=== PATIENT | female | born 1990 | race Caucasian/White ===

== ENCOUNTER 2020-06-10 08:43 | Emergency (ER) | payer BC, SELFPAY ==
--- NOTE | 2020-06-10 08:48 | ED.URI ---
HPI - URI/Sore Throat General Chief Complaint: Ear Stated Complaint: sore throat Time Seen by Provider: 06/10/20 09:00 Source: patient and RN notes reviewed Mode of arrival: ambulatory Limitations: no limitations History of Present Illness HPI Narrative: 29 year old female presents with c/f sore throat, rhinorrhea, nasal congestion, intermittent diarrhea, and fatigue. She reports low grade fever. She reports she has taken ibuprofen for symptom relief. MD elicited complaint: rhinorrhea Related Data Home Medications Medication Instructions Recorded Confirmed buspirone 7.5 mg PO BID 08/05/19 06/10/20 valacyclovir [Valtrex] 500 mg PO DAILY 08/05/19 06/10/20 Allergies Allergy/AdvReac Type Severity Reaction Status Date / Time No Known Allergies Allergy Mild Verified 06/10/20 08:57 Review of Systems Review of Systems: Narrative: CONSTITUTIONAL: Denies malaise, chills, sweats. reports fatigue and low grade fever. EYES: Denies visual changes, redness, or discharge. ENT: Reports rhinorrhea, congestion, otalgia and sore throat. Denies sinus pain, CARDIOVASCULAR: Denies chest pain, palpitations, or edema. RESPIRATORY: Reports occasional cough and chest congestion. Denies dyspnea. GASTROINTESTINAL: Denies abdominal pain, nausea, vomiting, diarrhea SKIN: Denies rash or itching. MUSCULOSKELETAL: Denies myalgia. NEUROLOGIC: Denies headache. All systems reviewed & are unremarkable except as noted in HPI and below PMFSH Family History Family History Father Hypertension Grandparent Family history of malignant neoplasm of breast, Onset Age: 65 Family history of coronary artery disease Diabetes mellitus Hypertension Cerebrovascular accident, Onset Age: 72 Mother Hypertension Social History Social History Smoking status: Former smoker Alcohol intake: current Substance use: never Gender identity (if verbalized by the patient): Female Spiritual care concerns: No Comments At time of signature, agree with nursing past medical, surgical, social and family history. There is no relevant family history pertinent to the presenting complaint Exam Narrative: Exam Narrative: GENERAL: Well-appearing, well-nourished, and in no acute distress. HEAD: Normocephalic EYES: PERRLA, conjunctivae clear ENT: Nares clear, turbinates edematous and erythematous, clear discharge. Mucous membranes moist. TM pearly ortega with dull light reflex bilaterally; no tragal tenderness. Oropharynx erythematous without lesions. Tonsils enlarged and without exudate, no drooling, no hoarseness, no trismus, uvula midline. NECK: Supple. No lymphadenopathy CHEST: Clear to auscultation, breath sounds equal. No wheezing, rhonchi, rales, or stridor. No respiratory distress, speaks in full sentences. HEART: Regular rate and rhythm. No murmur heard. SKIN: Warm, dry, no rash. NEURO: Alert and oriented x3. PSYCH: Normal mood and affect Course Course Emergency Course: Patient is aware of diagnosis, understands and agrees to treatment plan. Anticipatory guidance given. Patient agrees to follow-up as directed and is aware of reasons to seek care at the emergency department. Portions of this record may have been created with voice recognition software Vital Signs Vital signs: Vital Signs Temperature 97.7 F 06/10/20 08:53 Pulse Rate 85 06/10/20 08:53 Respiratory Rate 16 06/10/20 08:53 Blood Pressure 120/79 06/10/20 08:53 Pulse Oximetry 100 06/10/20 08:53 Temperature 97.7 F 06/10/20 08:53 Pulse Rate 85 06/10/20 08:53 Respiratory Rate 16 06/10/20 08:53 Blood Pressure 120/79 06/10/20 08:53 Pulse Oximetry 100 06/10/20 08:53 Reviewed. MDM - URI/Sore Throat MDM Narrative Medical decision making narrative: Differential diagnosis considered: Dominguez virus, strep pharyngitis, allergic rhinitis, upper respiratory tract infection, sinusitis, rhinosinusitis, annetta
[2020-06-10 08:53] VITALS: BP 120/79; PULSE 85; RESP 16; TEMP 36.5; O2SAT 100
== END 2020-06-10 09:15 | disposition home or self-care (01) ==
PROVIDERS: Emergency Provider Nurse Practitioner; PCP Family Medicine
DX: J06.9 Acute upper respiratory infection, unspecified (principal); Z20.828 Contact with and (suspected) exposure to other viral communicable diseases; Z87.891 Personal history of nicotine dependence
CPT/HCPCS: 99213; G0463

== ENCOUNTER 2020-06-11 06:45 | Outpatient (NON) | payer BC, SELFPAY ==
[2020-06-11 19:00] LABS: SARS-CoV-2 RNA PCR Negative
== END 2020-06-11 06:46 ==
PROVIDERS: PCP Family Medicine; Visit Provider Nurse Practitioner
DX: Z20.828 Contact with and (suspected) exposure to other viral communicable diseases (principal); J06.9 Acute upper respiratory infection, unspecified
CPT/HCPCS: 87635; C9803; U0003

== ENCOUNTER 2021-07-01 13:46 | Emergency (ER) | payer BC, SELFPAY ==
--- NOTE | ~2021-07-01 | XR_ITS ---
EXAMINATION: XR chest 2V EXAM DATE: 07/01/2021 14:10 INDICATION: Sometimes prod cough x 1 month. Pt shielded. TECHNIQUE: Frontal and lateral projections of the chest obtained and reviewed. Comparison is made to prior examination from 04/19/2019. FINDINGS: The lungs are clear. There are no pleural effusions. The cardiomediastinal silhouette is within normal limits. There is no pneumothorax suspected. The bones and soft tissues are unremarkab le. There is no significant interval change. IMPRESSION: No acute cardiopulmonary findings. Reviewed, dictated and finalized at location A.
[2021-07-01 13:50] VITALS: BP 128/89; PULSE 95; RESP 18; TEMP 36.2
--- NOTE | 2021-07-01 14:37 | ED.URI ---
HPI - URI/Sore Throat General Chief Complaint: Upper Respiratory Infection Stated Complaint: cough/wheezing Time Seen by Provider: 07/01/21 14:12 Source: patient and RN notes reviewed Limitations: no limitations History of Present Illness HPI Narrative: The vaccinated patient, previously healthy who is a vapor/smoker with pets at home, presents with cough. Patient states she has a 3-day worsening of at least 30-day history of intermittent cough. She had a telemedicine visit with her doctor and was treated symptomatically and slightly improved afterwards. But in the last 3 days she has had recurrent cough, possible positional wheezing. No fever, CP, loss of taste/smell, wheezing, S OB, calf pain/edema. Related Data Home Medications Medication Instructions Recorded Confirmed buspirone 7.5 mg PO BID 08/05/19 07/01/21 [id number] 1 tablet PO DAILY 07/01/21 07/01/21 [] Allergies Allergy/AdvReac Type Severity Reaction Status Date / Time No Known Allergies Allergy Mild Verified 07/01/21 14:00 Review of Systems Review of Systems: General/Constitutional: No weight loss,fever Eyes: N0: Redness,discharge Ears/Nose/Throat: No: Epistaxis,ear discharge Respiratory: Denies: Hemoptysis Gastrointestinal: No Vomiting, Bleeding-rectal Skin: No Lumps, eruption Neurologic: No Focal Weakness,Sz Hematologic: Denies: Petechiae/Purpura Psychiatric: No: Suicida ideationl All Other Systems: Reviewed and Negative [facility] Family History Family History Father Hypertension Grandparent Family history of malignant neoplasm of breast, Onset Age: 65 Family history of coronary artery disease Diabetes mellitus Hypertension Cerebrovascular accident, Onset Age: 72 Mother Hypertension Social History Social History Smoking status: Former smoker Alcohol intake: current Substance use: never Gender identity (if verbalized by the patient): Female Spiritual care concerns: No Comments At time of signature, agree with nursing past medical, surgical, social and family history. There is no relevant family history pertinent to the presenting complaint Exam Narrative: General Appearance: Well appearing, No distress EYE: PERRLA, Conjunctiva clear Ears: External ear normal Nose: Normal nose Mouth/Throat: Normal appearing, Normal lips Neck: Supple Respiratory: Airway patent, No respiratory distress, CTA including forced expiration Cardiovascular: RRR Abdomen: Soft, Non-tender, Musculoskeletal: Full ROM Skin: Warm, Dry Neurological: A&O x3, CN II-X intact Psychiatric: Normal mood, Normal affect Course Course Emergency Course: Films visualized, interpreted by radiologist, agree, normal see report Vital Signs Vital signs: Vital Signs Temperature 97.2 F L 07/01/21 13:50 Pulse Rate 95 07/01/21 13:50 Respiratory Rate 18 07/01/21 13:50 Blood Pressure 128/89 07/01/21 13:50 Temperature 97.2 F L 07/01/21 13:50 Pulse Rate 95 07/01/21 13:50 Respiratory Rate 18 07/01/21 13:50 Blood Pressure 128/89 07/01/21 13:50 MDM - URI/Sore Throat Lab Data Labs: Lab Results 07/01/21 Range/Units 14:20 POC SARS CoV-2 Ag Negative (Negative) Discharge Plan Discharge Clinical Impression: Cough Patient Disposition: Home, Self-Care Condition: Stable Instructions: Chronic Cough (ED) Additional Instructions: Consider removing triggers like pets and vaping Prescriptions: New azithromycin 250 mg tablet See Rx Instructions .ROUTE .COMPLEX Qty: 6 RF: 0 benzonatate 100 mg capsule 100 mg PO BID PRN (Reason: cough) Qty: 14 RF: 2 prednisone 20 mg tablet 60 mg PO DAILY Qty: 9 RF: 0 codeine-guaifenesin 10-100 mg/5 mL liquid 7.5 ml PO HS PRN (Reason: cough) Qty: 118 RF: 0 azelastine 137 mcg (0.1 %) aerosol,spray 137 mcg NASAL Q12H Qty: 30 RF: 0 alb
== END 2021-07-01 14:45 | disposition home or self-care (01) ==
PROVIDERS: Emergency Provider Emergency Medicine
DX: R05.9 Cough, unspecified (principal); Z20.822 Contact with and (suspected) exposure to COVID-19; Z87.891 Personal history of nicotine dependence
CPT/HCPCS: 71046; 87426; 99213; C9803; G0463

== ENCOUNTER 2021-11-05 15:58 | Emergency (ER) | payer BC, SELFPAY ==
[2021-11-05 16:05] VITALS: BP 121/90; PULSE 78; RESP 16; TEMP 36.8; O2SAT 99
--- NOTE | 2021-11-05 16:16 | ED.NAVMDI ---
HPI - Nausea/Vomiting/Diarrhea General Chief complaint: Nausea/Vomiting/Diarrhea Stated complaint: nausea/abd pain Time Seen by Provider: 11/05/21 16:16 Source: patient Mode of arrival: ambulatory Limitations: no limitations History of Present Illness HPI Narrative: 31 yo F presents with c/o upset stomach, nausea, fatigue and diarrhea for 2 to 3 days. States feel like i need to vomit but haven't . Pt reports that she read on google that she may have stomach ulcers. no hx of stomach ulcers. afebrile. no urinary symptoms. LMP 1 wk ago. Patient is well-appearing, no distress. All systems reviewed and negative except as noted above. Related Data Home Medications Medication Instructions Recorded Confirmed buspirone 7.5 mg PO BID 08/05/19 11/05/21 Allergies Allergy/AdvReac Type Severity Reaction Status Date / Time No Known Allergies Allergy Mild Verified 11/05/21 16:14 Review of Systems Review of Systems: CONSTITUTIONAL: Denies fever, chills, or sweats. Reports fatigue. EYES: Denies visual changes, redness, or discharge. ENT: Denies rhinorrhea, congestion, sore throat, or otalgia. CARDIOVASCULAR: Denies chest pain, palpitations, or edema. RESPIRATORY: Denies cough or dyspnea. GASTROINTESTINAL: Reports abdominal pain, nausea, and diarrhea. Denies vomiting. GENITOURINARY: Denies dysuria or hematuria. SKIN: Denies rash or itching. MUSCULOSKELETAL: Denies back pain, joint pain, or myalgia. NEUROLOGIC: Denies headache, numbness, or weakness. PSYCHIATRIC: Denies anxiety or depression. All other systems reviewed are negative, except as documented in HPI. [facility] Family History Family History Father Hypertension Grandparent Family history of malignant neoplasm of breast, Onset Age: 65 Family history of coronary artery disease Diabetes mellitus Hypertension Cerebrovascular accident, Onset Age: 72 Mother Hypertension Social History Social History Smoking status: Former smoker Alcohol intake: current Substance use: never Gender identity (if verbalized by the patient): Female Spiritual care concerns: No Comments At time of signature, agree with nursing past medical, surgical, social and family history. There is no relevant family history pertinent to the presenting complaint. Exam Narrative: GENERAL: This is a well-nourished, well-developed patient, in no apparent distress. HEAD: normocephalic, atraumatic. EYES: PERRL. Sclera clear/white. Vision is grossly intact. EARS: External ears normal, auditory canals clear and without drainage, TMs normal without perforation. Hearing grossly intact. NOSE: External nose normal with no obvious nasal discharge, nares without redness, no rhinorrhea. THROAT: Mucous membranes moist, posterior pharynx clear. NECK: Neck supple, non-tender without lymphadenopathy, masses or thyromegaly. CARDIOVASCULAR: Regular rate and rhythm without murmurs, gallops, or rubs. RESPIRATORY: Clear to auscultation. Breath sounds equal bilaterally. No wheezes, rales, or rhonchi. GASTROINTESTINAL: Abdomen soft, nontender, nondistended. Bowel sounds are active. No hepato-splenomegaly, or palpable masses. No guarding. SKIN: warm, Dry, intact with no suspicious lesions or rash, good texture and turgor. NEURO: awake, alert, and oriented to person, place and time. There were no obvious focal neurologic abnormalities. EXTREMITIES: No joint tenderness, effusion, or edema noted. No calf tenderness. Negative Homans sign bilaterally. BACK: Nontender without deformity. No CVA tenderness. Course Course Level of Care: Express Care Visit Vital Signs Vital signs: Vital Signs Temperature 36.8 C 11/05/21 16:05 Pulse Rate 78 11/05/21 16:05 Respiratory Rate 16 11/05/21 16:05 Blood Pressure 121/90 11/05/21 16:05 Pulse Oximetry 99 11/05/21 16:05 Temperature 36.8 C 11/05/21 16:05 Pulse Rate 78 11/05/21 16:05 Resp
== END 2021-11-05 16:29 | disposition home or self-care (01) ==
PROVIDERS: Emergency Provider Nurse Practitioner Family
DX: A08.4 Viral intestinal infection, unspecified (principal); Z87.891 Personal history of nicotine dependence; F41.9 Anxiety disorder, unspecified
CPT/HCPCS: 99213; G0463

== ENCOUNTER 2022-10-14 08:17 | Outpatient (CLI) | payer BC, SELFPAY ==
--- NOTE | ~2022-10-14 | US_ITS ---
EXAMINATION: US OB <= 14 weeks fetus DATE: 10/14/2022 09:13 INDICATION: First trimester viability assessment TECHNIQUE: Real-time pelvic transabdominal and transvaginal ultrasound was performed. COMPARISON: None. FINDINGS: The uterus measures 16.5 x 7.0 x 9.7 cm. There is an intrauterine gestational sac. h eart motion is identified measuring 165 beats per minute (bpm) by M-mode Doppler. The crown rum p length measures 6.5 cm, which correlates with an estimated gestational age of 12 weeks and 6 day(s) (+/-) 8 day(s). The left ovary is not visualized however no left adnexal abnormality is seen. The right ovary measure s 3.0 x 2.3 x 2.2 cm. There is normal vascular flow in the right ovary. There is no free fluid in the pelvis. IMPRESSION: 1. Live intrauterine with an estimated gestational age of 12 weeks and 6 day(s) (+/-) 8 day (s) and an estimated delivery date of 04/22/2023. Reviewed, dictated and finalized at location B. ICIAN RELATIONS REPRESENTATIVE IMPRESSION: 1. Live intrauterine with an estimated gestational age of 12 weeks an d 6 day(s) (+/-) 8 day(s) and an estimated delivery date of 04/22/2023.
--- NOTE | ~2022-10-14 | US_ITS ---
US breast LT limited DATE: 10/14/2022 09:02 INDICATION: Palpable left breast lump for one year TECHNIQUE: Real-time and color flow imaging targeted to area of clinical complaint of left breast lum p at 1:00 6 cm from nipple. COMPARISON: None FINDINGS: Right breast 1:00 6 cm from nipple: There is a 1.8 x 1.4 cm circumscribed oval solid hypoechoic mass with through transmission and posterior enhancement. There is internal vascularity on color flow imag ing. Ultrasound-guided biopsy is recommended. IMPRESSION: BI-RADS Category 4A: Suspicious abnormality; biopsy should be considered Recommendation: Ultrasound-guided biopsy of 1.8 x 1.4 cm solid mass at 1:00 6 cm from nipple Reviewed, dictated and finalized at Location A. Reviewed, dictated and finalized at location A. GENCY DEPARTMENT TECHNICIAN IMPRESSION: BI-RADS Category 4A: Suspicious abnormality; biopsy should be consi dered Recommendation: Ultrasound-guided biopsy of 1.8 x 1.4 cm solid mass at 1:00 6 c m from nipple
== END 2022-10-14 08:18 ==
LOC: MICIMG 08:19
PROVIDERS: PCP Obstetrics & Gynecology Gynecology; Visit Provider Advanced Practice Midwife
DX: O36.80X0 Pregnancy with inconclusive fetal viability, not applicable or unspecified (principal); N63.25 Unspecified lump in the left breast, overlapping quadrants; Z3A.12 12 weeks gestation of pregnancy; R92.8 Other abnormal and inconclusive findings on diagnostic imaging of breast
CPT/HCPCS: 76642; 76801

== ENCOUNTER 2023-02-23 16:39 | Emergency (ER) | payer OTHER, SELFPAY ==
[2023-02-23 16:50] VITALS: BP 122/77; PULSE 98; RESP 16; TEMP 36.6; O2SAT 99
[2023-02-23 16:54] VITALS: BP 122/77; PULSE 98; RESP 16; TEMP 36.6; O2SAT 99
--- NOTE | 2023-02-23 17:10 | ED.URI ---
HPI - URI/Sore Throat General Chief Complaint: Upper Respiratory Infection Stated Complaint: Cough/Bodyaches Time Seen by Provider: 02/23/23 17:05 Source: patient, family, RN notes reviewed and old records reviewed Mode of arrival: ambulatory Limitations: no limitations History of Present Illness HPI Narrative: 32-year-old female who is 30 weeks presents to Express Care with complaints of cough and congestion. Patient reports severe coughing fits especially during the night has been taking Robitussin without relief of her symptoms.Patient reports that she was diagnosed with influenza last week and has had present cough for 3-4 days. Patient reports no fevers. chills or sweats, states that she has coughed so hard that she has thrown up. She states that her [employer] HAND told her to come to urgent care for evaluation and chest x-ray but no order for x-ray sent. Discussed with patient that I didn't feel chest film would be necessary since lung quintana auscultated clear. MD elicited complaint: cough, rhinorrhea and nasal congestion Onset (ago): day(s) (3-4 days) Able to tolerate fluids by mouth: Yes Treatments prior to arrival: acetaminophen and other (robitussin) Related Data Home Medications Medication Instructions Recorded Confirmed buspirone 7.5 mg tablet 15 mg PO BID 08/05/19 11/05/21 ergocalciferol (vitamin D2) 1,250 02/23/23 02/23/23 mcg (50,000 unit) capsule valacyclovir 500 mg tablet mg 02/23/23 Allergies Allergy/AdvReac Type Severity Reaction Status Date / Time ortiz Allergy Hives Verified 02/23/23 16:53 Review of Systems Review of Systems: CONSTITUTIONAL: Denies malaise, chills, sweats, or fever. EYES: Denies visual changes, redness, or discharge. ENT: Reports rhinorrhea, congestion, no sinus pain,no otalgia or sore throat. CARDIOVASCULAR: Denies chest pain, palpitations, or edema. RESPIRATORY: Reports cough.? Denies dyspnea. GASTROINTESTINAL: Denies abdominal pain, nausea, vomiting, diarrhea, has vomited with coughing so hard SKIN: Denies rash or itching. MUSCULOSKELETAL: Denies myalgia. NEUROLOGIC: Denies headache. All systems reviewed & are unremarkable except as noted in HPI and below PMFSH Past Medical History Medical History (Updated 02/25/23 @ 07:55 by Marilyn Alford NP) Anxiety and depression History of sinus problem Surgical History Surgical History (Updated 02/25/23 @ 07:54 by Marilyn Alford NP) History of tonsillectomy Family History Family History Father Hypertension Grandparent Family history of malignant neoplasm of breast, Onset Age: 65 Family history of coronary artery disease Diabetes mellitus Hypertension Cerebrovascular accident, Onset Age: 72 Mother Hypertension Social History Social History Smoking status: Former smoker Alcohol intake: current Substance use: never Gender identity (if verbalized by the patient): Female Spiritual care concerns: No Comments At time of signature, agree with nursing past medical, surgical, social and family history. There is no relevant family history pertinent to the presenting complaint Exam Narrative: GENERAL: Well-appearing, well-nourished, and in no acute distress.is 30 weeks with 2nd child HEAD: Normocephalic EYES: PERRLA, conjunctivae clear ENT: Nares clear, turbinates edematous and erythematous, clear to yellowish discharge. Mucous membranes moist. TM pearly ortega with dull light reflex bilaterally; no tragal tenderness. Oropharynx erythematous without lesions. Tonsils not present and throat without exudate, no drooling, no hoarseness, no trismus, uvula midline.post nasal drainage NECK: Supple. No lymphadenopathy CHEST: Clear to auscultation, breath sounds equal. No wheezing, rhonchi, rales, or stridor. No respiratory distress, speaks in full sentences.cough noted, SAO2 99% on room air HEART: Regul
== END 2023-02-23 17:30 | disposition home or self-care (01) ==
PROVIDERS: Emergency Provider Registered Nurse; PCP Obstetrics & Gynecology Gynecology
DX: O99.891 Other specified diseases and conditions complicating pregnancy (principal); Z3A.49 Greater than 42 weeks gestation of pregnancy; Z3A.30 30 weeks gestation of pregnancy; R05.9 Cough, unspecified; R09.81 Nasal congestion; Z87.891 Personal history of nicotine dependence; F41.9 Anxiety disorder, unspecified; F32.A Depression, unspecified
CPT/HCPCS: 99213; G0463

== ENCOUNTER 2023-03-23 09:39 | Outpatient (RCR) | payer OTHER, SELFPAY ==
[2023-03-23 10:25] VITALS: BP 111/65; PULSE 93
== END 2023-06-21 23:59 | disposition home or self-care (01) ==
LOC: ANHOBOP 09:39
PROVIDERS: PCP Obstetrics & Gynecology Gynecology; Visit Provider Obstetrics & Gynecology Gynecology
DX: O36.8130 Decreased fetal movements, third trimester, not applicable or unspecified (principal); Z3A.34 34 weeks gestation of pregnancy
CPT/HCPCS: 59025

== ENCOUNTER 2023-04-18 15:48 | Observation (INO) | payer OTHER, SELFPAY ==
--- NOTE | 2023-04-18 15:48 | OBADM ---
This patient, Gemini Adams, admitted to the OB room Labor/Delivery/Recovery 105 for observation. Patient/family oriented to hospital policies and general routines including ID bracelet, bed and alarms, visiting hours, pain management, procedures, bathroom and other care routines, personal items, smoking policy, room service/diet, and visiting hours. Patient/Family are encouraged to report perceived risks to care and to ask questions if they do not understand what they are told or what they should do.
[2023-04-18 16:00] VITALS: BMI 28.4
[2023-04-18 16:30] VITALS: BP 123/80; PULSE 84
[2023-04-18 16:45] VITALS: BP 121/80; PULSE 88
--- NOTE | 2023-04-20 14:53 | PM.OBTRLD ---
OB - Triage/Final Diagnosis Visit Information Reason for evaluation: threatened labor Comments/Additional reasons for admission: I have assessed the risk for this patient, Gemini Adams, and determined that she would benefit from observation care.
== END 2023-04-18 17:15 | disposition home or self-care (01) ==
PROVIDERS: Admitting Provider Obstetrics & Gynecology; Visit Provider Obstetrics & Gynecology
DX: O47.1 False labor at or after 37 completed weeks of gestation (principal); Z3A.38 38 weeks gestation of pregnancy
CPT/HCPCS: G0378; G0379

== ENCOUNTER 2023-04-22 05:13 | Inpatient (IN) | payer OTHER, SELFPAY ==
[2023-04-22] VITALS (71 sets, daily range): BP systolic 97–157; BP diastolic 56–121; PULSE 59–112; RESP 16; TEMP 36.7–37.7; O2SAT 96–100; BMI 28.8
--- NOTE | 2023-04-22 05:30 | LDADM ---
This patient, Gemini Adams, was admitted to Labor/Delivery/Recovery 104 on 04/22/23 at 05:13. Plans for labor, pain management and were discussed with patient. Patient/family oriented to hospital policies and general routines including ID bracelet, bed and alarms, visiting hours, pain management, procedures, bathroom and other care routines, personal items, smoking policy, room service/diet and guest tray routines, infant security routines, and visiting hours. Patient/Family are encouraged to report perceived risks to care and to ask questions if they do not understand what they are told or what they should do. See OBIX for further documentation.
[2023-04-22 05:52] LABS: Basophils Percent Auto 0.3 % (0.2-1.2); Eosinophils Absolute Auto 0.4 K/mm3 (0-0.3); Eosinophils Percent Auto 2.9 % (0-4.4); Hematocrit 34.6 % (37.0-47.0); Hemoglobin 11.9 g/dL (12.0-15.0); Immature Granulocyte Absolute 0.14 K/mm3 (0.00-0.031); Lymphocytes Absolute Auto 2.33 K/mm3 (0.9-3.2); Lymphocytes Percent Auto 17.2 % (18.3-44.2); Mean Corpuscular HGB Conc 34.4 g/dl (32-36); Mean Corpuscular Hemoglobin 32.9 pg (26-34); Mean Corpuscular Volume 95.6 fl (80-100); Mean Platelet Volume 10.3 fl (7.4-10.4); Monocytes Absolute Auto 0.8 K/mm3 (0.1-0.6); Neutrophils Absolute Auto 9.8 K/mm3 (1.3-6.7); Neutrophils Percent Auto 72.6 % (45.5-73.1); Platelet Count Result 249 k/mm3 (150-375); Red Blood Count 3.62 M/mm3 (4.2-5.4); Red Cell Distribution Width 12.9 % (11.5-14.5); White Blood Count 13.6 K/mm3 (4.5-10.0)
[2023-04-22] MEDS: LACTATED RINGERS 1,000 ML 125 ML IV CONT (06:40)
[2023-04-22] MEDS: OXYTOCIN 30 UNITS/NS 500 ML 30 UNITS/500 ML BAG IV CONT (06:46)
[2023-04-22] MEDS: ONDANSETRON INJ 4 MG/2 ML VIAL IV PUSH (06:52)
[2023-04-22 06:55] LABS: Glucose Point of Care 92 mg/dl (65-105)
--- NOTE | 2023-04-22 07:25 | WPDOBADMIT ---
Obstetrics - Admit Note Admission Note: record reviewed. No pertinent additions to the history and/or any subsequent changes in the physical findings that are not consistent with the expected course of the were found. Additions to the history and/or subsequent changes in the physical findings follow. Here at 39 wks for MIL. Cervix /-1 AROM with thick meconium noted. FHTs cat. I. Planning epidural now. Continue MIL.
[2023-04-22] MEDS: LACTATED RINGERS 1,000 ML 999 ML IV CONT (07:41)
[2023-04-22] MEDS: SALINE 0.65% NAS SOLN 44 ML BTL 1 SPRAY NASAL (08:05)
[2023-04-22] MEDS: fentaNYL CITRATE INJ (*CRX) 100 MCG/2 ML VIAL 50 MCG IV PUSH (08:08)
--- NOTE | 2023-04-22 08:40 | WPDANESEPP ---
Anes - Eval Pre Procedure Procedure: labor epidural Date/Time: 04/22/23 08:40 Preop Diagnosis: labor pain Pre Op Diagnosis: Induction of Labor Patient Data Age: 32 Gender: F Height: Weight: Last Vital Signs Temp 36.8 C 04/22/23 06:36 Pulse 70 04/22/23 08:39 BP 146/88 H 04/22/23 08:39 Pulse Ox 98 04/22/23 08:38 O2 Del Method Room Air 04/22/23 05:40 Allergies Allergy/AdvReac Type Severity Reaction Status Date / Time ortiz Allergy Hives Verified 04/01/23 13:39 Home Medications Medication Instructions Recorded Confirmed Type buspirone 7.5 mg tablet 15 mg PO BID 08/05/19 11/05/21 History ergocalciferol (vitamin D2) 1,250 02/23/23 02/23/23 History mcg (50,000 unit) capsule valacyclovir 500 mg tablet mg 02/23/23 History ferrous sulfate 325 mg (65 mg 325 mg PO DAILY 04/01/23 04/01/23 History iron) tablet prenat.vits,christianne,hcx-hhdu-wppnc tablet 04/01/23 History Laboratory Tests 04/22/23 04/22/23 05:46 06:36 WBC 13.6 H K/mm3 (4.5-10.0) RBC 3.62 L M/mm3 (4.2-5.4) Hgb 11.9 L g/dL (12.0-15.0) Hct 34.6 L % (37.0-47.0) MCV 95.6 fl (80-100) MCH 32.9 pg (26-34) MCHC 34.4 g/dl (32-36) RDW 12.9 % (11.5-14.5) Plt Count 249 k/mm3 (150-375) MPV 10.3 fl (7.4-10.4) Immature Gran % (Auto) 1.0 H % (0-0.5) Neut % (Auto) 72.6 % (45.5-73.1) Lymph % (Auto) 17.2 L % (18.3-44.2) Schuyler % (Auto) 6.0 % (2.6-8.5) Eos % (Auto) 2.9 % (0-4.4) Baso % (Auto) 0.3 % (0.2-1.2) Lymph # (Auto) 2.33 K/mm3 (0.9-3.2) Schuyler # (Auto) 0.8 H K/mm3 (0.1-0.6) Eos # (Auto) 0.4 H K/mm3 (0-0.3) Baso # (Auto) 0.0 K/mm3 (0.0-0.1) Abs Immat Gran (auto) 0.14 H K/mm3 (0.00-0.031) Absolute Neuts (auto) 9.8 H K/mm3 (1.3-6.7) Absolute Nucleated RBC 0.0 K/mm3 (0.0-0.012) Nucleated RBC % 0.0 % (0.0-0.2) POC Capillary Glucose 92 mg/dl (65-105) RPR Pending Blood Type O Positive Antibody Screen Negative Patient hx anesthesia problems: none Family hx anesthesia problems: none Results Review: All pre-operative results and documents have been reviewed as part of the pre-operative evaluation. [facility] Past Medical History Medical History Anxiety and depression History of sinus problem Surgical History Surgical History History of tonsillectomy Family History Family History Father Hypertension Grandparent Family history of malignant neoplasm of breast, Onset Age: 65 Family history of coronary artery disease Diabetes mellitus Hypertension Cerebrovascular accident, Onset Age: 72 Mother Hypertension Social History Social History Years smoked: 5 Smoking status: Current every day smoker Tobacco type: e-cigarettes/vaping Alcohol intake: current Substance use: never Lack of Transportation: No Lack of Food: Never True Current Housing: I Have Housing Concerned About Future Housing: No Difficulty Paying Gas/Electric Bills: No Difficulty Paying for Meds: No Currently Unemployed: No Education: Master's Degree or Higher Difficulty w/ Childcare or Family Care: No Gender identity (if verbalized by the patient): Female Spiritual care concerns: No Exam Day of Procedure 04/22/23 08:40
[2023-04-22 09:02] LABS: Rapid Plasma Reagin Non-Reactive (NonReactive)
--- NOTE | 2023-04-22 09:38 | PM.OBPRVD ---
OB - Delivery Note Procedure Delivery date: 04/22/23 Procedure: Events: Gestational Diabetes (GDMA2) Induction method: AROM and Per Pitocin Protocol Delivery monitor: External FHT and External Uterine Route of delivery: Laceration Description: Periurethral Delivery repair: vicryl (3-0 vicryl) Quantitative Blood Loss (ml): 150 Anesthesia type: Epidural Disposition: PACU Baby Date of : 04/22/23 Weeks of gestation at delivery: 39 gender: Female Weight (pounds): 8 Weight (ounces): 14 presentation: vertex position: Right Occiput Anterior Placenta delivery description: Spontaneous Cord Vessel Description: 3 Vessels score one minute: 8 score five minutes: 9
--- NOTE | 2023-04-22 09:40 | PM.OBDSVD ---
DS: Admitting Diagnosis Discharge Date 04/23/23 Admitting Diagnosis IUP 39 wks GDMA2 DS: Discharge Diagnosis Discharge Diagnosis (1) (normal spontaneous vaginal delivery): Code(s): O80 - Encounter for full-term uncomplicated delivery Status: Acute (2) GDM, class A2: Code(s): O24.419 - Gestational diabetes mellitus in , unspecified control Status: Acute OB - DS: Summary OB Procedures : NST, Ultrasound and Other (GDMA2 management) OB Procedures Intrapartum: Spontaneous Vag Delivery OB Procedures: : None Peripartum Data Infant Delivery Method: Natural Vaginal Laceration Description: Periurethral complications: none Status at Discharge Functional status at discharge: independent ambulation Overall status at discharge: patient is progressing back to baseline Time Spent with Patient Time attestation: Total time spent providing and/or coordinating discharge services: DS: Data Data Completed and Pending Labs on day of discharge: Labs from last 24 hours 04/22/23 04/22/23 06:36 05:46 WBC 13.6 H RBC 3.62 L Hgb 11.9 L Hct 34.6 L MCV 95.6 MCH 32.9 MCHC 34.4 RDW 12.9 Plt Count 249 MPV 10.3 Immature Gran % (Auto) 1.0 H Neut % (Auto) 72.6 Lymph % (Auto) 17.2 L Divide % (Auto) 6.0 Eos % (Auto) 2.9 Baso % (Auto) 0.3 Lymph # (Auto) 2.33 Divide # (Auto) 0.8 H Eos # (Auto) 0.4 H Baso # (Auto) 0.0 Abs Immat Gran (auto) 0.14 H Absolute Neuts (auto) 9.8 H Absolute Nucleated RBC 0.0 Nucleated RBC % 0.0 POC Capillary Glucose 92 RPR Non-reactive Blood Type O Positive Antibody Screen Negative Discharge Plan Discharge Attending physician on discharge: Gemini Wynn Discharging Clinician: Gemini Wynn Anticipated Discharge Date/Time: 04/23/23 09:41 Patient Disposition: Home, Self-Care Activity: may shower and pelvic rest Diet: regular Patient Instructions: Antibiotic Form, How to Stop Smoking (DC), Cigarette Smoking and Your Health (GEN) Stand Alone Forms: General Discharge Information Follow-up/Referrals: Gemini Wynn MD [Primary Care Provider] - 6 Weeks Discharge Medications: New norethindrone (contraceptive) 0.35 mg tablet 0.35 mg PO DAILY Qty: 84 3RF Continued ergocalciferol (vitamin D2) 1,250 mcg (50,000 unit) capsule 1 unit PO DAILY prenat.vits,christianne,caj-gzrc-xyyik Tablet 1 tablet PO DAILY buspirone 7.5 mg Tablet 15 mg PO BID Discontinued valacyclovir 500 mg tablet 500 mg PO DAILY ferrous sulfate 325 mg (65 mg iron) Tablet 325 mg PO DAILY Date of admission: 04/22/23 05:13 Primary Care Provider: Gemini Wynn Admitting Provider: Gemini Wynn Attending physician on admission: Gemini Wynn Condition: Stable
[2023-04-22] MEDS: METHYLERGONOVINE MALEATE 0.2 MG/ML VIAL IM (09:45)
[2023-04-22] MEDS: OXYTOCIN 30 UNITS/NS 500 ML 30 UNITS/500 ML BAG 125 UNITS IV CONT (09:56)
[2023-04-22] MEDS: WITCH HAZEL 40 PADS 1 PAD TOPICAL (12:02)
[2023-04-22] MEDS: IBUPROFEN 600 MG TABLET PO (12:02)
[2023-04-22] MEDS: BENZOCAINE 20% AER SPR (*SP) 56 GM CAN 1 SPRAY TOPICAL (12:03)
--- NOTE | 2023-04-22 12:55 | OBPPTRN ---
Patient transferred to post room #280 via wheelchair. Support person present. Oriented to unit, room, information board, rooming in, admission packet and security measures. Patient verbalizes understanding.
[2023-04-22] MEDS: ACETAMINOPHEN 325 MG TABLET 650 MG PO (17:01)
[2023-04-22] MEDS: DOCUSATE SODIUM 100 MG CAPSULE PO (17:01)
[2023-04-22] MEDS: busPIRone HCL 2.5 MG, busPIRone HCL 5 MG 7.5 MG PO (20:32)
[2023-04-22] MEDS: POLYSACCHARIDE IRON COMPLEX 150 MG CAPSULE PO (20:33)
[2023-04-22] MEDS: CITALOPRAM HYDROBROMIDE 20 MG TABLET PO (20:34)
[2023-04-23 04:30] VITALS: BP 112/70; PULSE 85; RESP 16; TEMP 36.7; O2SAT 95
[2023-04-23 04:54] LABS: Hematocrit 32.5 % (37.0-47.0); Hemoglobin 11.1 g/dL (12.0-15.0)
--- NOTE | 2023-04-23 07:41 | PM.OBPNVD ---
OB - PN: Subj Subjective Date/time seen: 04/23/23 07:41 Patient comments: no complaints and pain well controlled baby status: doing well OB - PN: Obj Data Labs 04/23/23 04:32 Labs: Laboratory Results - last 24 hr 04/22/23 04/23/23 05:46 04:32 Hgb 11.1 L Hct 32.5 L RPR Non-reactive OB - PN A/P Plan day: 1 Plan: routine care, discharge home, follow up 6 weeks and other (plans micronor until vasectomy) Time Spent With Patient Time: Total time spent is greater than 50% in coordination of care (as documented) at patient's floor/unit and/or counseling patient: Exam : Bimanual exam- vagina & uterus: other (Uterus firm, nt @U)
[2023-04-23 08:00] VITALS: BP 125/78; PULSE 62; RESP 16; TEMP 36.9; O2SAT 100
[2023-04-23 08:22] LABS: Glucose Point of Care 83 mg/dl (65-105)
[2023-04-23] MEDS: DOCUSATE SODIUM 100 MG CAPSULE PO (09:50)
[2023-04-23] MEDS: busPIRone HCL 2.5 MG TABLET (09:50)
[2023-04-23] MEDS: MULTIVIT/MIN/PREN/FOL AC/IRON TABLET 1 TAB PO (09:50)
[2023-04-23] MEDS: busPIRone HCL 2.5 MG, busPIRone HCL 5 MG 7.5 MG PO (09:50)
[2023-04-23] MEDS: busPIRone HCL 5 MG TABLET (09:50)
--- NOTE | 2023-04-23 09:55 | PC.NURSE ---
[id number] Introductions were made, then consulted with patient to assess needs related to . Mother led the conversation with her?plans to feed?her and the?experience so far. Mother has baby latched on to her left breast in cradle position, RN helped reposition baby with a pillow to bring baby closer to mother. Per mother, the latch felt better and baby was able to relax and breastfeed well. Baby is on D10 IV fluids and will receive supplementation after each feeding per general handling supervisor order. Resources provided for inpatient and outpatient services with the feeding sheet, mom/baby guide and name written on the white board. Mother voiced understanding of information and will call if there is a request for assistance. Reported to the primary RN.
--- NOTE | 2023-04-23 14:46 | WPDANESPN ---
Anes - Prog Note Post-Op Date/Time: 04/23/23 14:46 Cardiovascular status: normal Respiratory status: normal Airway patency: baseline Vital Signs: Last Vital Signs Temp 36.9 C 04/23/23 08:00 Pulse 62 04/23/23 08:00 Resp 16 04/23/23 08:00 BP 125/78 04/23/23 08:00 Pulse Ox 100 04/23/23 08:00 O2 Del Method Room Air 04/23/23 04:30 I/O: Intake & Output 04/22/23 04/23/23 04/23/23 23:59 07:59 15:59 Intake Total 240 Balance 240 Laboratory Tests 04/23/23 04:32 04/23/23 04/23/23 04:32 08:19 Hgb 11.1 L Hct 32.5 L POC Capillary Glucose 83 Patient Feedback: Patient satisfied with anesthetic care.
--- NOTE | 2023-04-23 14:47 | WPDANLDPN2 ---
Anes-Prog Note L&D Date/Time: 04/23/23 14:47 Comfortable throughout: labor Neuraxial method: epidural Epidural/Spinal procedure site: clean & non-tender Neuro status: Neuro function grossly intact. Cardiovascular status: normal Respiratory status: normal Airway patency: baseline Mental status: baseline Post-Op hydration status: normal Vital Signs: Last Vital Signs Temp 36.9 C 04/23/23 08:00 Pulse 62 04/23/23 08:00 Resp 16 04/23/23 08:00 BP 125/78 04/23/23 08:00 Pulse Ox 100 04/23/23 08:00 O2 Del Method Room Air 04/23/23 04:30 Pain score (VAS): 1/10 I/O: Intake & Output 04/22/23 04/23/23 04/23/23 23:59 07:59 15:59 Intake Total 240 Balance 240 Post-procedural complaints: none Patient feedback: Patient satisfied with anesthetic care.
[2023-04-23 20:00] VITALS: BP 136/91; PULSE 69; RESP 16; TEMP 36.8; O2SAT 98
[2023-04-23] MEDS: CITALOPRAM HYDROBROMIDE 20 MG TABLET PO (21:20)
[2023-04-23] MEDS: busPIRone HCL 10 MG, busPIRone HCL 5 MG 15 MG PO (21:20)
--- NOTE | 2023-04-24 07:40 | PC.NURSE ---
PT introductions made and plan of care discussed per post , pain management, daily care activities and pending discharge to home. PT and spouse both recipients of such instructions and no barriers to learning identified at this time. Pt received such instructions per one to one discussion, mom baby care guide and demonstrations this shift. PT verbalized understanding of such care.
--- NOTE | 2023-04-24 08:21 | PM.OBPNVD ---
OB - PN: Subj Subjective Date/time seen: 04/24/23 08:21 Patient comments: no complaints and pain well controlled baby status: doing well OB - PN: Obj Data Labs 04/23/23 04:32 Labs: Laboratory Results - last 24 hr 04/23/23 08:19 POC Capillary Glucose 83 OB - PN A/P Plan day: 2 Plan: discharge home Comments: had to stay yesterday due to infant. DC today Time Spent With Patient Time: Total time spent is greater than 50% in coordination of care (as documented) at patient's floor/unit and/or counseling patient: Exam : Bimanual exam- vagina & uterus: other (Uterus firm, nt @U)
[2023-04-24 09:00] VITALS: BP 131/89; PULSE 88; RESP 18; TEMP 36.8; O2SAT 97
--- NOTE | 2023-04-24 10:30 | PC.NURSE ---
PT received discharge instructions per protocol and verbalized understanding of such care. Patient was given the opportunity to view the discharge video Mother & Baby Care, The First Two Weeks and to ask questions. Patient declined viewing the video and has been given the mother/baby guide for home reference.
[2023-04-24] MEDS: MULTIVIT/MIN/PREN/FOL AC/IRON TABLET 1 TAB PO (10:57)
[2023-04-24] MEDS: DOCUSATE SODIUM 100 MG CAPSULE PO (10:57)
--- NOTE | 2023-04-24 11:11 | PC.NURSE ---
PT discharged to home ambulatory accompanied by spouse and and walked to waiting car. follow up appts confirmed
[2023-04-26 09:14] VITALS: BP 126/80; PULSE 70; RESP 16; TEMP 37; O2SAT 98
== END 2023-04-24 11:11 | disposition home or self-care (01) | DRG 807 ==
LOC: ANHLDR 09:41 → ANHOB2 13:11
PROVIDERS: Admitting Provider Obstetrics & Gynecology Gynecology; PCP Obstetrics & Gynecology Gynecology; Visit Provider Obstetrics & Gynecology Gynecology
DX: O24.429 Gestational diabetes mellitus in childbirth, unspecified control (principal); Z37.0 Single live birth; Z3A.39 39 weeks gestation of pregnancy; O77.0 Labor and delivery complicated by meconium in amniotic fluid; O62.3 Precipitate labor; O71.82 Other specified trauma to perineum and vulva
CPT/HCPCS: 36415; 82948; 85014; 85018; 85025; 86592; 86850; 86900; 86901; 88307; A9270; J2210; J2405; J2590; J2795; J3010; J7120